=== PATIENT | male | born 1985 | race Two or more races ===

== ENCOUNTER → 2020-11-17 | Day surgery (SDC) | payer OTHER ==
[~2020-11-17] VITALS: Ht 167.6 cm; Wt 80.0 kg
[~2020-11-17] MED LIST: HYDROmorphone 2 MG/ML VIAL IVP PRN; IV RINGERS,LACTATED 1000ML 1,000 ML IV SCH; LIDOCAINE 2% PF 5 ML VIAL. ONE; MORPHINE SULFATE 2 MG/ML INJ. IVP PRN; PROCHLORPERAZINE 10 MG/2 ML VIAL. IVP PRN; PROPOFOL 10 MG/ML (20ML) VIAL. IV ONE; fentaNYL PF VIAL 100 MCG/2 ML VIAL IVP PRN
[2020-11-17 12:52] VITALS: BP 118/74
--- NOTE | 2020-11-17 12:58 | PDOC1 ---
History and Physical Date of Admission Date of Admission DATE: 11/17/20 TIME: 12:51 Identification/Chief Complaint Chief Complaint Abdominal pain/diarrhea/abnormal CT Source Source: Chart review, Patient History of Present Illness History of Present Illness 35 y/o male seen in-house early October with abdominal pain, diarrhea and abnormal imaging concerning for possible IBD. No chronic history of complaints. No heartburn, dysphagia, PUD, GB, liver or pancreatic history. Smoker. Occasional alcohol. No NSAIDS. GIFH negative. Presents now for further evaluation. Past Medical History Past Medical History Prior COVID, recovered. Past Surgical History Past Surgical History: Appendectomy Family History Family History: Other (No GI issues.) Social History Smoke: <1 pack per day ALCOHOL: occassional Drugs: None Current Medications Current Medications Current Medications Fentanyl Citrate (Fentanyl 2ml Vial) 25 mcg PRN Q5MIN PRN IVP MILD PAIN 1-3; Start 11/17/20 at 06:00; Stop 11/17/20 at 18:00 Fentanyl Citrate (Fentanyl 2ml Vial) 50 mcg PRN Q5MIN PRN IVP MODERATE PAIN 4- 6; Start 11/17/20 at 06:00; Stop 11/17/20 at 18:00 Morphine Sulfate (Morphine Sulfate) 1 mg PRN Q10MIN PRN IVP SEVERE PAIN 7-10; Start 11/17/20 at 06:00; Stop 11/17/20 at 18:00 Ringer's Solution 1,000 ml @ 30 mls/hr Q24H IV ; Start 11/17/20 at 06:00; Stop 11/17/20 at 17:59 Hydromorphone HCl (Dilaudid) 0.5 mg PRN Q10MIN PRN IVP SEVERE PAIN 7-10, 2nd CHOICE; Start 11/17/20 at 06:00; Stop 11/17/20 at 18:00 Prochlorperazine Edisylate (Compazine) 5 mg PACU PRN PRN IVP NAUSEA, MRX1; Start 11/17/20 at 06:00; Stop 11/17/20 at 18:00 Active Scripts Active No Active Prescriptions or Reported Medications Allergies Allergies: Coded Allergies: No Known Drug Allergies (Unverified , 11/17/20) ROS Review of System Otherwise negative. Physical Exam General: Alert, Oriented X3, Cooperative, No acute distress HEENT: PERRLA, EOMI Lungs: Clear to auscultation, Normal air movement Heart: S1S2, RRR, no gallops, no murmurs Abdomen: Normal bowel sounds, Soft, No tenderness, No hepatosplenomegaly, No masses Rectal Exam: deferred (to time of procedure) Extremities: No cyanosis, No edema Skin: No significant lesion Neuro: Normal speech, Strength at 5/5 X4 ext, Normal tone, Sensation intact, Cranial nerves 3-12 NL, Reflexes 2+ Psych/Mental Status: Mental status NL, Mood NL Vitals Vitals See nursing record. VTE Prophylaxis Ordered VTE Prophylaxis Devices: No VTE Pharmacological Prophylaxi: No Assessment/Plan Assessment/Plan IMP: Abdominal pain/diarrhea/abnormal imaging--IBD? PLAN: EGD/colonoscopy. LIVAN CONTRERAS MD Nov 17, 2020 12:58
--- NOTE | 2020-11-17 13:30 | PDOC4 ---
PROCEDURE Procedure EGD/colonoscopy Indication: diarrheal illness/abdominal pain/abnormal CT Meds: per anesthesia Findings: E--Grade A at 40cm. G--Striped erythema, antrum, biopsied. D--Normal to second portion. TAMEKA--Normal --'Scope advanced to TI. Mucosa normal. No diverticula, polyps, etc. Normal TI and retroflex. Sanjuanita. well. IMP: Mild, asymptomatic reflux. Non-specific antral erythema, biopsied. Normal colonoscopy to TI. Findings while in hospital likely infectious. REC: Reassure. Await biopsies. F/u in 2 weeks. Resume diet and meds as at home. LIVAN CONTRERAS MD Nov 17, 2020 13:30
[2020-11-17 13:43] VITALS: BP 104/70
--- NOTE | 2020-11-18 15:07 | PATHOLOGY ---
[facility] Accession Number: [id number] . 01 Material submitted: . ANTRUM - ANTRAL BX . 01 Clinical history: . ABD PAIN/ LOOSE STOOLS EGD/COLONOSCOPY . 02 Diagnosis: Gastric biopsy, antrum: - Chronic gastritis, moderate, with Helicobacter organisms identified. (JPM:ginny; 11/18/2020) MBR 11/18/2020 1016 Local . 02 Comment: Sections of the gastric antral biopsy show congestion and moderate chronic inflammation. A properly controlled immunoperoxidase stain for Helicobacter reveals the presence of Helicobacter organisms. There is no evidence of malignancy. (JPM:ginny; 11/18/2020) . . Special stain performed: Immunoperoxidase stain for Helicobacter . 02 Electronically signed: . Yoshi Caba MD, Pathologist NPI- [id number] . 01 Gross description: . The specimen is received in formalin, labeled "Morgan, Naveen, antral BX". It consists of 2 roe irregular soft tissue fragments measuring 0.4 and 0.7 cm. The specimen is entirely submitted between [facility] [place] in . (MRF; 11/17/2020) MFE/MFE 11/17/2020 1811 Local . 02 Pathologist provided ICD-10: K29.50, B96.81 . 02 CPT . 057426, [id number] Specimen Comment: A courtesy copy of this report has been sent to [phone] Specimen Comment: Report sent to Performed at: 01 [facility] [address], [place] [id number] MD Osbaldo Barrera MD Phone: [phone] Performed at: 02 [facility] [address] [place], [place] [id number] MD Yoshi Caba MD Phone: [phone]
== END | disposition home or self-care (01) ==
LOC: ENDOS 12:34
PROVIDERS: ATTEND Internal Medicine Gastroenterology
DX: R10.84 Generalized abdominal pain (principal); R19.7 Diarrhea, unspecified; K29.50 Unspecified chronic gastritis without bleeding; B96.81 Helicobacter pylori [H. pylori] as the cause of diseases classified elsewhere; K21.00 Gastro-esophageal reflux disease with esophagitis, without bleeding; K31.89 Other diseases of stomach and duodenum; K63.89 Other specified diseases of intestine; R93.3 Abnormal findings on diagnostic imaging of other parts of digestive tract; F17.210 Nicotine dependence, cigarettes, uncomplicated; Z79.899 Other long term (current) drug therapy; Z98.890 Other specified postprocedural states; Z20.822 Contact with and (suspected) exposure to COVID-19
CPT/HCPCS: 43239; 45378; J2704; 88305; 88342